=== PATIENT | female | born 1965 | race Caucasian/White ===

== ENCOUNTER 2016-08-21 11:02 | Inpatient (IN) | payer OTHER ==
[2016-08-18 16:24] LABS: BASOPHILS % (AUTO) 0.5 % (0.0-2.0); EOSINOPHILS # (AUTO) 0.2 K/uL (0.0-0.4); EOSINOPHILS % (AUTO) 2.9 % (0.0-4.0); HEMATOCRIT 41.5 % (36-48); HEMOGLOBIN 12.9 g/dL (12.0-16.0); LYMPHOCYTES # (AUTO) 1.8 K/uL (1.0-5.5); LYMPHOCYTES % (AUTO) 29.7 % (20.5-51.5); MEAN CORPUSCULAR HEMOGLOBIN 24 pg (27-31); MEAN CORPUSCULAR HGB CONC 31 % (32-36); MEAN CORPUSCULAR VOLUME 76 fL (79.0-98.0); MONOCYTES # (AUTO) 0.6 K/uL (0.0-1.0); MONOCYTES % (AUTO) 10.6 % (1.7-9.3); NEUTROPHILS # (AUTO) 3.4 K/uL (1.8-7.7); NEUTROPHILS % (AUTO) 56.3 % (40.0-70.0); PLATELET COUNT (AUTO) 316 K/uL (130-430); RED BLOOD CELL COUNT(AUTO) 5.43 MIL/uL (4.2-6.2); RED CELL DISTRIBUTION WIDTH 16.2 % (9.0-15.0)
[2016-08-18 16:52] LABS: INR 1.1 (0.8-1.2); PROTHROMBIN TIME 12.1 SECS (9.5-12.5)
[2016-08-18 16:58] LABS: ALBUMIN 4.2 g/dL (3.4-4.8); CALCIUM 10.2 mg/dL (8.4-11.0); CREATININE 0.84 mg/dL (0.55-1.30); POTASSIUM 3.7 mmol/L (3.5-5.1); TOTAL BILIRUBIN 0.3 mg/dL (0.0-1.0)
[~2016-08-21] VITALS: Ht 167.6 cm; Wt 65.8 kg
[~2016-08-21 11:02] MED LIST: ABAT125S SQ; ALPR0.2583 PO; AMLO5TAB92 PO; PLA200 PO; SOLI40 IVP; TEMA30CA5 PO
[2016-08-21] MEDS ORDERED: POLYMYXIN 500,000/BACIT.10,000 UNITS in NS IRR 1 L IR ONE (12:50)
[2016-08-21] MEDS ORDERED: LR 1,000 ML IV SCH (13:22)
[2016-08-21] MEDS ORDERED: KETOROLAC TROMETHAMINE 30 MG VIAL IVP PRN ×2 (13:30→15:45)
[2016-08-21] MEDS ORDERED: ONDANSETRON HCL 4 MG/2 ML VIAL IVP PRN (13:30)
[2016-08-21] MEDS ORDERED: MEPERIDINE HCL/PF 25 MG/ML DISP.SYRIN IVP PRN ×2 (13:30)
[2016-08-21] MEDS ORDERED: ACETAMINOPHEN 325 MG TABLET PO PRN (15:45)
[2016-08-21] MEDS ORDERED: DIPHENHYDRAMINE INJ 50 MG/ML VIAL IVP ONE (15:45)
[2016-08-21] MEDS ORDERED: DIPHENHYDRAMINE INJ 50 MG/ML VIAL ONE ×2 (15:50→18:24)
[2016-08-21] MEDS ORDERED: KETOROLAC TROMETHAMINE 30 MG VIAL ONE (15:50)
[2016-08-21] MEDS ORDERED: HYDROmorphone 1 MG INJ. 1 MG/ML AMPUL ONE (15:50)
[2016-08-21] MEDS: ONDANSETRON HCL 4 MG/2 ML VIAL IVP PRN (18:41)
[2016-08-21] MEDS: D5/0.45 NS 1,000 ML IV SCH (18:51)
[2016-08-21 19:47] VITALS: BP_SYST 131
[2016-08-21] MEDS ORDERED: VANCOMYCIN HCL 1 GM/NS PREMIX 250 ML IV ONE (20:00)
[2016-08-21] MEDS: DIPHENHYDRAMINE INJ 50 MG/ML VIAL IVP PRN (21:22)
[2016-08-21] MEDS: HYDROmorphone 1 MG INJ. 1 MG/ML AMPUL IVP PRN (21:22)
[2016-08-21] MEDS: CEFAZOLIN 1 GM IVPB PREMIX 50 ML IV SCH (21:36)
[2016-08-21 23:49] VITALS: BP_SYST 112
[2016-08-22] MEDS: DIPHENHYDRAMINE INJ 50 MG/ML VIAL IVP PRN ×7 (00:51→23:05)
[2016-08-22] MEDS: HYDROmorphone 1 MG INJ. 1 MG/ML AMPUL IVP PRN ×7 (00:51→23:06)
[2016-08-22 04:03] VITALS: BP_SYST 124
[2016-08-22] MEDS: D5/0.45 NS 1,000 ML IV SCH ×2 (05:54→11:33)
[2016-08-22] MEDS: CEFAZOLIN 1 GM IVPB PREMIX 50 ML IV SCH (05:54)
[2016-08-22 08:00] VITALS: BP_SYST 135
[2016-08-22 08:09] LABS: BASOPHILS # (AUTO) 0.1 K/uL (0.0-0.2); BASOPHILS % (AUTO) 0.5 % (0.0-2.0); EOSINOPHILS % (AUTO) 0.1 % (0.0-4.0); HEMOGLOBIN 11.3 g/dL (12.0-16.0); LYMPHOCYTES # (AUTO) 1.5 K/uL (1.0-5.5); LYMPHOCYTES % (AUTO) 10.6 % (20.5-51.5); MEAN CORPUSCULAR HEMOGLOBIN 25 pg (27-31); MEAN CORPUSCULAR HGB CONC 33 % (32-36); MEAN CORPUSCULAR VOLUME 75 fL (79.0-98.0); MONOCYTES # (AUTO) 0.8 K/uL (0.0-1.0); MONOCYTES % (AUTO) 5.5 % (1.7-9.3); NEUTROPHILS # (AUTO) 12.2 K/uL (1.8-7.7); NEUTROPHILS % (AUTO) 83.3 % (40.0-70.0); PLATELET COUNT (AUTO) 282 K/uL (130-430); RED BLOOD CELL COUNT(AUTO) 4.51 MIL/uL (4.2-6.2); RED CELL DISTRIBUTION WIDTH 16.5 % (9.0-15.0); WHITE BLOOD COUNT (AUTO) 14.6 K/uL (4.8-10.8)
[2016-08-22 08:25] LABS: POTASSIUM 3.9 mmol/L (3.5-5.1)
[2016-08-22 08:26] LABS: ALBUMIN 3.5 g/dL (3.4-4.8); CALCIUM 8.9 mg/dL (8.4-11.0); CREATININE 0.78 mg/dL (0.55-1.30); TOTAL BILIRUBIN 0.2 mg/dL (0.0-1.0); TOTAL PROTEIN, SERUM 6.7 g/dL (6.4-8.3)
[2016-08-22 12:39] VITALS: BP_SYST 137
[2016-08-22] MEDS ORDERED: TRIAMCINOLONE ACETONIDE 40 MG/ML ONE (14:00)
[2016-08-22] MEDS ORDERED: BUPIVACAINE LIPOSOME/PF 266 MG/20 ML VIAL INFIL ONE (14:00)
[2016-08-22] MEDS ORDERED: LR 1,000 ML IV.SOLN IV ONE (14:00)
[2016-08-22] MEDS ORDERED: MIDAZOLAM HCL 5 MG/5 ML VIAL ONE (14:00)
[2016-08-22] MEDS ORDERED: GLYCOPYRROLATE 0.2 MG/ML VIAL ONE (14:00)
[2016-08-22] MEDS ORDERED: NS IRRIG SOLN 1000 ML IR ONE (14:00)
[2016-08-22] MEDS ORDERED: fentaNYL CITRATE 250 MCG/5 ML AMP ONE (14:00)
[2016-08-22] MEDS ORDERED: ONDANSETRON HCL 4 MG/2 ML VIAL ONE (14:00)
[2016-08-22] MEDS ORDERED: SEVOFLURANE 15 MIN GAS INH ONE (14:00)
[2016-08-22] MEDS ORDERED: PROPOFOL 200MG/ 20ML VIAL (DIPRIVAN) IV ONE (14:00)
[2016-08-22] MEDS ORDERED: CEFAZOLIN 2 GM IVPB PREMIX 50 ML IV ONE (14:00)
[2016-08-22] MEDS ORDERED: ROCURONIUM BROMIDE 10 MG/ML (ZEMURON) ONE (14:00)
[2016-08-22] MEDS ORDERED: DOCUSATE SODIUM 250 MG CAPSULE PO ONE (15:15)
[2016-08-22] MEDS ORDERED: MINERAL OIL 30 ML UDC PO ONE (15:15)
[2016-08-22] MEDS ORDERED: HYDROmorphone 1 MG INJ. 1 MG/ML AMPUL IVP ONE (15:15)
[2016-08-22] MEDS ORDERED: HYDROmorphone 2 MG TAB PO PRN (15:15)
[2016-08-22] MEDS ORDERED: MILK OF MAGNESIA 30 ML UDC PO PRN (15:15)
[2016-08-22 16:47] VITALS: BP_SYST 137
[2016-08-22] MEDS: MINERAL OIL 30 ML UDC PO SCH (20:22)
[2016-08-22] MEDS: DOCUSATE SODIUM 250 MG CAPSULE PO SCH (20:22)
[2016-08-22] MEDS: TEMAZEPAM 15 MG CAPSULE PO SCH (23:28)
[2016-08-23] VITALS (7 sets, daily range): BP systolic 132–158
[2016-08-23] MEDS: DIPHENHYDRAMINE INJ 50 MG/ML VIAL IVP PRN ×6 (02:16→20:07)
[2016-08-23] MEDS: HYDROmorphone 1 MG INJ. 1 MG/ML AMPUL IVP PRN ×6 (02:21→20:08)
[2016-08-23 07:26] LABS: BASOPHILS # (AUTO) 0.1 K/uL (0.0-0.2); BASOPHILS % (AUTO) 0.5 % (0.0-2.0); CREATININE 0.67 mg/dL (0.55-1.30); EOSINOPHILS # (AUTO) 0.3 K/uL (0.0-0.4); EOSINOPHILS % (AUTO) 2.5 % (0.0-4.0); HEMOGLOBIN 11.6 g/dL (12.0-16.0); LYMPHOCYTES # (AUTO) 1.8 K/uL (1.0-5.5); LYMPHOCYTES % (AUTO) 17.7 % (20.5-51.5); MEAN CORPUSCULAR HEMOGLOBIN 26 pg (27-31); MEAN CORPUSCULAR HGB CONC 34 % (32-36); MEAN CORPUSCULAR VOLUME 75 fL (79.0-98.0); MONOCYTES % (AUTO) 9.4 % (1.7-9.3); NEUTROPHILS # (AUTO) 6.9 K/uL (1.8-7.7); NEUTROPHILS % (AUTO) 69.9 % (40.0-70.0); PLATELET COUNT (AUTO) 250 K/uL (130-430); POTASSIUM 3.9 mmol/L (3.5-5.1); RED BLOOD CELL COUNT(AUTO) 4.53 MIL/uL (4.2-6.2); RED CELL DISTRIBUTION WIDTH 16.3 % (9.0-15.0); WHITE BLOOD COUNT (AUTO) 10.1 K/uL (4.8-10.8)
[2016-08-23] MEDS: DOCUSATE SODIUM 250 MG CAPSULE PO SCH ×2 (08:21→20:07)
[2016-08-23] MEDS: MINERAL OIL 30 ML UDC PO SCH ×2 (08:21→20:07)
[2016-08-23] MEDS ORDERED: HYDR-4100 PO (14:35)
[2016-08-23] MEDS ORDERED: DOCU250C PO (14:36)
[2016-08-23 23:11] LABS: BASOPHILS # (AUTO) 0.1 K/uL (0.0-0.2); BASOPHILS % (AUTO) 0.6 % (0.0-2.0); EOSINOPHILS # (AUTO) 0.3 K/uL (0.0-0.4); EOSINOPHILS % (AUTO) 2.6 % (0.0-4.0); MONOCYTES # (AUTO) 0.9 K/uL (0.0-1.0)
[2016-08-23 23:19] LABS: HEMATOCRIT 35.5 % (36-48); HEMOGLOBIN 11.8 g/dL (12.0-16.0); LYMPHOCYTES # (AUTO) 1.5 K/uL (1.0-5.5); LYMPHOCYTES % (AUTO) 14.8 % (20.5-51.5); MEAN CORPUSCULAR HEMOGLOBIN 25 pg (27-31); MEAN CORPUSCULAR HGB CONC 33 % (32-36); MEAN CORPUSCULAR VOLUME 76 fL (79.0-98.0); NEUTROPHILS # (AUTO) 7.4 K/uL (1.8-7.7); PLATELET COUNT (AUTO) 256 K/uL (130-430); RED BLOOD CELL COUNT(AUTO) 4.67 MIL/uL (4.2-6.2); RED CELL DISTRIBUTION WIDTH 15.9 % (9.0-15.0); WHITE BLOOD COUNT (AUTO) 10.2 K/uL (4.8-10.8)
[2016-08-24] VITALS (7 sets, daily range): BP systolic 129–149
[2016-08-24 00:01] LABS: CALCIUM 9.1 mg/dL (8.4-11.0); CREATININE 0.72 mg/dL (0.55-1.30); POTASSIUM 4.3 mmol/L (3.5-5.1)
[2016-08-24] MEDS: TEMAZEPAM 15 MG CAPSULE PO SCH (00:19)
[2016-08-24] MEDS: DIPHENHYDRAMINE INJ 50 MG/ML VIAL IVP PRN ×7 (00:20→18:59)
[2016-08-24] MEDS: HYDROmorphone 1 MG INJ. 1 MG/ML AMPUL IVP PRN ×7 (00:21→19:00)
[2016-08-24] MEDS: MINERAL OIL 30 ML UDC PO SCH ×2 (09:40→20:28)
[2016-08-24] MEDS: DOCUSATE SODIUM 250 MG CAPSULE PO SCH ×2 (09:40→20:28)
[2016-08-24 11:48] LABS: BASOPHILS # (AUTO) 0.1 K/uL (0.0-0.2); BASOPHILS % (AUTO) 0.6 % (0.0-2.0); EOSINOPHILS # (AUTO) 0.4 K/uL (0.0-0.4); HEMATOCRIT 37.3 % (36-48); HEMOGLOBIN 12.4 g/dL (12.0-16.0); LYMPHOCYTES # (AUTO) 1.8 K/uL (1.0-5.5); LYMPHOCYTES % (AUTO) 20.4 % (20.5-51.5); MEAN CORPUSCULAR HEMOGLOBIN 25 pg (27-31); MEAN CORPUSCULAR HGB CONC 33 % (32-36); MEAN CORPUSCULAR VOLUME 77 fL (79.0-98.0); MONOCYTES # (AUTO) 0.9 K/uL (0.0-1.0); MONOCYTES % (AUTO) 10.1 % (1.7-9.3); NEUTROPHILS # (AUTO) 5.5 K/uL (1.8-7.7); NEUTROPHILS % (AUTO) 63.9 % (40.0-70.0); PLATELET COUNT (AUTO) 272 K/uL (130-430); RED BLOOD CELL COUNT(AUTO) 4.87 MIL/uL (4.2-6.2); RED CELL DISTRIBUTION WIDTH 16.3 % (9.0-15.0); WHITE BLOOD COUNT (AUTO) 8.7 K/uL (4.8-10.8)
[2016-08-24] MEDS: ONDANSETRON HCL 4 MG/2 ML VIAL IVP PRN (20:28)
== END 2016-08-24 21:46 | disposition home or self-care (01) | DRG 355 ==
LOC: SDS 11:02 → UNDOADMOB 17:08 → SMU 17:08 → SDS 08-22 14:43 → SMU 08-22 14:48
PROVIDERS: ADMIT Internal Medicine; ATTEND Internal Medicine
PROC: 0WJF4ZZ Inspection of Abdominal Wall, Percutaneous Endoscopic Approach (ICD-10-PCS; 2016-08-21)
PROC: 0HR7X74 Replacement of Abdomen Skin with Autologous Tissue Substitute, Partial Thickness, External Approach (ICD-10-PCS; 2016-08-21)
PROC: 3E0T3CZ (ICD-10-PCS; 2016-08-21)
PROC: 0WQF0ZZ Repair Abdominal Wall, Open Approach (ICD-10-PCS; 2016-08-21)
PROC: 0WUF0JZ Supplement Abdominal Wall with Synthetic Substitute, Open Approach (ICD-10-PCS; principal; 2016-08-21 13:00)
DX: K43.2 Incisional hernia without obstruction or gangrene (principal); D63.8 Anemia in other chronic diseases classified elsewhere; G89.4 Chronic pain syndrome; M06.9 Rheumatoid arthritis, unspecified; I10 Essential (primary) hypertension; M32.9 Systemic lupus erythematosus, unspecified; M79.7 Fibromyalgia; F32.9 Major depressive disorder, single episode, unspecified; F41.9 Anxiety disorder, unspecified; Z86.73 Personal history of transient ischemic attack (TIA), and cerebral infarction without residual deficits
CPT/HCPCS: 36415; 71020-TC; 80048; 80053; 85025; 85610-TC; 85730-TC; 87040-TC; 87536; 88302; 93005; C9290; J0690; J1170; J1200; J1885; J2250; J2405; J2704; J3010; J3301; J3370; J3490; J7120

== ENCOUNTER 2016-10-14 17:22 | Inpatient (IN) | payer OTHER ==
[~2016-10-14] VITALS: Ht 167.6 cm; Wt 65.8 kg
[2016-10-14] MEDS: FAMOTIDINE PF 20 MG/2 ML VIAL IVP SCH ×2 (09:00→20:39)
[2016-10-14] MEDS: methylPREDNISolone SOD SUCC 40 MG/ML VIAL IVP SCH ×2 (09:15→20:39)
[~2016-10-14 17:22] MED LIST changes: -ALPR0.2583 PO; -AMLO5TAB92 PO; +DOCU250C PO; +HYDR-4100 PO; -PLA200 PO; -SOLI40 IVP; -TEMA30CA5 PO
[2016-10-14 17:59] VITALS: BP_SYST 151
[2016-10-14 18:00] VITALS: BP_SYST 151
[2016-10-14] MEDS ORDERED: CHOL2000 PO (18:15)
[2016-10-14] MEDS ORDERED: PLA200 PO (18:15)
[2016-10-14] MEDS ORDERED: ASPI81TA2 PO (18:15)
[2016-10-14] MEDS ORDERED: VITA400C68 PO (18:15)
[2016-10-14] MEDS ORDERED: ZOLP5TAB2 PO (18:15)
[2016-10-14] MEDS ORDERED: L.RH1CAP PO (18:15)
[2016-10-14] MEDS ORDERED: ZOLPIDEM TARTRATE 5 MG TABLET PO PRN (18:30)
[2016-10-14] MEDS ORDERED: HYDROcodone/ACETAMIN 10-325 MG TAB PO SCH (18:30)
[2016-10-14 20:00] VITALS: BP_SYST 140
[2016-10-14] MEDS: ONDANSETRON HCL 4 MG/2 ML VIAL IVP PRN (20:36)
[2016-10-14] MEDS: HYDROmorphone 1 MG INJ. 1 MG/ML AMPUL IVP PRN (20:37)
[2016-10-14] MEDS: DIPHENHYDRAMINE INJ 50 MG/ML VIAL IVP PRN (20:38)
[2016-10-14] MEDS: DOCUSATE SODIUM 250 MG CAPSULE PO SCH (20:39)
[2016-10-14] MEDS: HYDROXYCHLOROQUINE SULFATE 200 MG TABLET PO SCH (20:39)
[2016-10-14] MEDS: LR 1,000 ML IV SCH (20:49)
[2016-10-14] MEDS: LORazepam 2 MG/ML VIAL IVP PRN (22:54)
[2016-10-14 23:17] LABS: BASOPHILS % (AUTO) 0.4 % (0.0-2.0); EOSINOPHILS % (AUTO) 0.2 % (0.0-4.0); HEMATOCRIT 39.7 % (36-48); HEMOGLOBIN 13.3 g/dL (12.0-16.0); LYMPHOCYTES % (AUTO) 11.4 % (20.5-51.5); MEAN CORPUSCULAR HEMOGLOBIN 25 pg (27-31); MEAN CORPUSCULAR HGB CONC 34 % (32-36); MEAN CORPUSCULAR VOLUME 76 fL (79.0-98.0); MONOCYTES # (AUTO) 0.2 K/uL (0.0-1.0); NEUTROPHILS # (AUTO) 7.8 K/uL (1.8-7.7); PLATELET COUNT (AUTO) 311 K/uL (130-430); RED BLOOD CELL COUNT(AUTO) 5.24 MIL/uL (4.2-6.2); RED CELL DISTRIBUTION WIDTH 15.6 % (9.0-15.0)
[2016-10-14 23:25] LABS: CALCIUM 9.4 mg/dL (8.4-11.0); CREATININE 1.04 mg/dL (0.55-1.30); POTASSIUM 3.7 mmol/L (3.5-5.1)
[2016-10-14 23:30] LABS: TOTAL BILIRUBIN 0.4 mg/dL (0.0-1.0); TOTAL PROTEIN, SERUM 7.8 g/dL (6.4-8.3)
[2016-10-15] VITALS (7 sets, daily range): BP systolic 108–153
[2016-10-15] MEDS: TEMAZEPAM 15 MG CAPSULE PO PRN (00:58)
[2016-10-15] MEDS: DIPHENHYDRAMINE INJ 50 MG/ML VIAL IVP PRN ×5 (02:41→21:07)
[2016-10-15] MEDS: HYDROmorphone 1 MG INJ. 1 MG/ML AMPUL IVP PRN ×5 (02:42→21:09)
[2016-10-15] MEDS: LR 1,000 ML IV SCH ×2 (05:27→17:35)
[2016-10-15] MEDS: ONDANSETRON HCL 4 MG/2 ML VIAL IVP PRN ×4 (05:34→21:06)
[2016-10-15] MEDS: LORazepam 2 MG/ML VIAL IVP PRN ×2 (05:34→22:51)
[2016-10-15 06:53] LABS: CALCIUM 9.2 mg/dL (8.4-11.0); CREATININE 0.85 mg/dL (0.55-1.30); POTASSIUM 3.8 mmol/L (3.5-5.1)
[2016-10-15 06:57] LABS: BASOPHILS % (AUTO) 0.4 % (0.0-2.0); EOSINOPHILS % (AUTO) 0.1 % (0.0-4.0); HEMATOCRIT 37.2 % (36-48); HEMOGLOBIN 12.5 g/dL (12.0-16.0); LYMPHOCYTES % (AUTO) 15.5 % (20.5-51.5); MEAN CORPUSCULAR HEMOGLOBIN 25 pg (27-31); MEAN CORPUSCULAR HGB CONC 34 % (32-36); MEAN CORPUSCULAR VOLUME 76 fL (79.0-98.0); MONOCYTES # (AUTO) 0.2 K/uL (0.0-1.0); MONOCYTES % (AUTO) 2.7 % (1.7-9.3); NEUTROPHILS # (AUTO) 5.5 K/uL (1.8-7.7); NEUTROPHILS % (AUTO) 81.3 % (40.0-70.0); PLATELET COUNT (AUTO) 283 K/uL (130-430); RED BLOOD CELL COUNT(AUTO) 4.92 MIL/uL (4.2-6.2); RED CELL DISTRIBUTION WIDTH 15.6 % (9.0-15.0); WHITE BLOOD COUNT (AUTO) 6.7 K/uL (4.8-10.8)
[2016-10-15] MEDS: FAMOTIDINE PF 20 MG/2 ML VIAL IVP SCH ×2 (08:55→21:04)
[2016-10-15] MEDS: methylPREDNISolone SOD SUCC 40 MG/ML VIAL IVP SCH ×2 (08:55→21:05)
[2016-10-15] MEDS: LACTOBACILLUS RHAMNOSUS GG 1 CAP CAPSULE PO SCH (09:00)
[2016-10-15] MEDS: CHOLECALCIFEROL (VITAMIN D3) 2,000 UNIT TABLET PO SCH (09:00)
[2016-10-15] MEDS: DOCUSATE SODIUM 250 MG CAPSULE PO SCH ×2 (09:00→21:05)
[2016-10-15] MEDS: ASPIRIN 81 MG TAB.CHEW PO SCH (09:01)
[2016-10-15] MEDS: HYDROXYCHLOROQUINE SULFATE 200 MG TABLET PO SCH ×2 (09:01→21:05)
[2016-10-15 11:29] LABS: ERYTHROCYTE SEDIMENTATION RATE 7 MM/HR (0-20)
[2016-10-15 11:30] LABS: RETICULOCYTE COUNT 0.7 % (0.5-1.5)
[2016-10-15] MEDS ORDERED: DIATR MEGLU/DIATRIZ SOD 30 ML SOLUTION PO ONE (13:34)
[2016-10-15] MEDS ORDERED: MINERAL OIL 30 ML UDC PO ONE (16:30)
[2016-10-15 18:00] LABS: BILIRUBIN,URINE NEGATIVE (NEGATIVE); BLOOD, URINE NEGATIVE (NEGATIVE); CLARITY/URINE CLEAR (CLEAR); COLOR,URINE YELLOW (YELLOW); GLUCOSE,URINE NEGATIVE (NEGATIVE); KETONES,URINE NEGATIVE (NEGATIVE); LEUKOCYTE ESTERASE ,URINE NEGATIVE (NEGATIVE); NITRITE, URINE NEGATIVE (NEGATIVE); PROTEIN URINE NEGATIVE (NEGATIVE); UROBILINOGEN,URINE 0.2 (0.2-1.0)
[2016-10-16] MEDS: LR 1,000 ML IV SCH ×3 (00:30→23:07)
[2016-10-16] MEDS: DIPHENHYDRAMINE INJ 50 MG/ML VIAL IVP PRN ×6 (01:26→22:06)
[2016-10-16] MEDS: HYDROmorphone 1 MG INJ. 1 MG/ML AMPUL IVP PRN ×6 (01:28→22:08)
[2016-10-16 04:10] VITALS: BP_SYST 136
[2016-10-16] MEDS: ONDANSETRON HCL 4 MG/2 ML VIAL IVP PRN ×2 (05:31→09:15)
[2016-10-16] MEDS: LORazepam 2 MG/ML VIAL IVP PRN ×2 (06:54→16:20)
[2016-10-16 08:00] VITALS: BP_SYST 155
[2016-10-16] MEDS: LACTOBACILLUS RHAMNOSUS GG 1 CAP CAPSULE PO SCH (09:00)
[2016-10-16] MEDS: DOCUSATE SODIUM 250 MG CAPSULE PO SCH ×2 (09:00→22:20)
[2016-10-16] MEDS: ASPIRIN 81 MG TAB.CHEW PO SCH (09:00)
[2016-10-16] MEDS: CHOLECALCIFEROL (VITAMIN D3) 2,000 UNIT TABLET PO SCH (09:00)
[2016-10-16] MEDS: HYDROXYCHLOROQUINE SULFATE 200 MG TABLET PO SCH ×2 (09:00→22:20)
[2016-10-16] MEDS: MINERAL OIL 30 ML UDC PO SCH (09:00)
[2016-10-16] MEDS: methylPREDNISolone SOD SUCC 40 MG/ML VIAL IVP SCH ×2 (09:18→22:09)
[2016-10-16] MEDS: FAMOTIDINE PF 20 MG/2 ML VIAL IVP SCH ×2 (09:18→23:07)
[2016-10-16 12:00] VITALS: BP_SYST 144
[2016-10-16 18:32] VITALS: BP_SYST 139
[2016-10-16 20:15] VITALS: BP_SYST 134; BP_SYST 137
[2016-10-16] MEDS: TEMAZEPAM 15 MG CAPSULE PO PRN (22:20)
[2016-10-16] MEDS ORDERED: GOLYTELY / COLYTE SOLUTION 4 LITERS PO ONE (23:30)
[2016-10-16 23:44] VITALS: BP_SYST 115
[2016-10-17] MEDS: DIPHENHYDRAMINE INJ 50 MG/ML VIAL IVP PRN ×5 (02:30→20:34)
[2016-10-17] MEDS: HYDROmorphone 1 MG INJ. 1 MG/ML AMPUL IVP PRN ×5 (02:31→20:36)
[2016-10-17 04:03] VITALS: BP_SYST 128
[2016-10-17] MEDS: LORazepam 2 MG/ML VIAL IVP PRN ×2 (04:22→22:26)
[2016-10-17 08:00] VITALS: BP_SYST 118
[2016-10-17 08:31] LABS: EOSINOPHILS % (AUTO) 0.1 % (0.0-4.0); HEMOGLOBIN 12.4 g/dL (12.0-16.0); LYMPHOCYTES % (AUTO) 20.1 % (20.5-51.5); MEAN CORPUSCULAR HEMOGLOBIN 25 pg (27-31); MEAN CORPUSCULAR HGB CONC 33 % (32-36); MEAN CORPUSCULAR VOLUME 78 fL (79.0-98.0); MONOCYTES # (AUTO) 0.5 K/uL (0.0-1.0); MONOCYTES % (AUTO) 5.5 % (1.7-9.3); PLATELET COUNT (AUTO) 243 K/uL (130-430); RED CELL DISTRIBUTION WIDTH 16.1 % (9.0-15.0); WHITE BLOOD COUNT (AUTO) 9.7 K/uL (4.8-10.8)
[2016-10-17 08:33] LABS: BASOPHILS % (AUTO) 0.1 % (0.0-2.0); NEUTROPHILS # (AUTO) 7.2 K/uL (1.8-7.7); NEUTROPHILS % (AUTO) 74.2 % (40.0-70.0)
[2016-10-17 08:44] LABS: ALBUMIN 3.7 g/dL (3.4-4.8); CALCIUM 9.1 mg/dL (8.4-11.0); CREATININE 0.66 mg/dL (0.55-1.30); TOTAL BILIRUBIN 0.2 mg/dL (0.0-1.0); TOTAL PROTEIN, SERUM 7.5 g/dL (6.4-8.3)
[2016-10-17] MEDS: FAMOTIDINE PF 20 MG/2 ML VIAL IVP SCH ×2 (09:12→20:34)
[2016-10-17] MEDS: methylPREDNISolone SOD SUCC 40 MG/ML VIAL IVP SCH ×2 (09:12→20:34)
[2016-10-17] MEDS: ASPIRIN 81 MG TAB.CHEW PO SCH (09:13)
[2016-10-17] MEDS: DOCUSATE SODIUM 250 MG CAPSULE PO SCH ×2 (09:13→20:36)
[2016-10-17] MEDS: MINERAL OIL 30 ML UDC PO SCH (09:13)
[2016-10-17] MEDS: HYDROXYCHLOROQUINE SULFATE 200 MG TABLET PO SCH ×2 (09:13→20:36)
[2016-10-17] MEDS: LACTOBACILLUS RHAMNOSUS GG 1 CAP CAPSULE PO SCH (09:13)
[2016-10-17] MEDS: CHOLECALCIFEROL (VITAMIN D3) 2,000 UNIT TABLET PO SCH (09:13)
[2016-10-17 09:44] LABS: ERYTHROCYTE SEDIMENTATION RATE 5 MM/HR (0-20)
[2016-10-17] MEDS: LR 1,000 ML IV SCH ×3 (09:59→20:57)
[2016-10-17 13:04] VITALS: BP_SYST 130
[2016-10-17] MEDS ORDERED: MIDAZOLAM HCL 5 MG/5 ML VIAL ONE (13:59)
[2016-10-17] MEDS ORDERED: fentaNYL CITRATE/PF 100 MCG/2 ML AMP ONE ×2 (13:59→14:26)
[2016-10-17] MEDS ORDERED: SIMETHICONE 40 MG/0.6 ML ML ONE (13:59)
[2016-10-17] MEDS ORDERED: DIPHENHYDRAMINE INJ 50 MG/ML VIAL ONE (14:21)
[2016-10-17] MEDS: ONDANSETRON HCL 4 MG/2 ML VIAL IVP PRN (16:04)
[2016-10-17 17:04] VITALS: BP_SYST 135
[2016-10-17 19:30] VITALS: BP_SYST 140
[2016-10-18] VITALS: BP_SYST 144
[2016-10-18] MEDS: DIPHENHYDRAMINE INJ 50 MG/ML VIAL IVP PRN ×4 (00:38→13:12)
[2016-10-18] MEDS: TEMAZEPAM 15 MG CAPSULE PO PRN (00:38)
[2016-10-18] MEDS: HYDROmorphone 1 MG INJ. 1 MG/ML AMPUL IVP PRN ×4 (00:39→13:13)
[2016-10-18 04:00] VITALS: BP_SYST 132
[2016-10-18 08:00] VITALS: BP_SYST 147
[2016-10-18] MEDS: ASPIRIN 81 MG TAB.CHEW PO SCH (08:45)
[2016-10-18] MEDS: LACTOBACILLUS RHAMNOSUS GG 1 CAP CAPSULE PO SCH (08:45)
[2016-10-18] MEDS: DOCUSATE SODIUM 250 MG CAPSULE PO SCH (08:46)
[2016-10-18] MEDS: CHOLECALCIFEROL (VITAMIN D3) 2,000 UNIT TABLET PO SCH (08:46)
[2016-10-18] MEDS: HYDROXYCHLOROQUINE SULFATE 200 MG TABLET PO SCH (08:46)
[2016-10-18] MEDS: MINERAL OIL 30 ML UDC PO SCH (08:46)
[2016-10-18] MEDS: FAMOTIDINE PF 20 MG/2 ML VIAL IVP SCH (08:47)
[2016-10-18] MEDS ORDERED: POLYETHYLENE GLYCOL 3350, 17 GM/ POWD.PACK PO SCH (09:00)
[2016-10-18] MEDS: methylPREDNISolone SOD SUCC 40 MG/ML VIAL IVP SCH (09:00)
[2016-10-18 10:38] VITALS: BP_SYST 147
[2016-10-18] MEDS: LORazepam 2 MG/ML VIAL IVP PRN (11:59)
[2016-10-18] MEDS: LR 1,000 ML IV SCH (12:21)
[2016-10-18 12:25] VITALS: BP_SYST 132
== END 2016-10-18 13:50 | disposition home or self-care (01) | DRG 546 ==
LOC: SMU 17:22
PROVIDERS: ADMIT Internal Medicine; ATTEND Internal Medicine
PROC: 0DBE8ZX Excision of Large Intestine, Via Natural or Artificial Opening Endoscopic, Diagnostic (ICD-10-PCS; principal; 2016-10-17 14:30)
DX: M32.9 Systemic lupus erythematosus, unspecified (principal); F11.20 Opioid dependence, uncomplicated; E86.0 Dehydration; M06.9 Rheumatoid arthritis, unspecified; G89.4 Chronic pain syndrome; K57.30 Diverticulosis of large intestine without perforation or abscess without bleeding; K44.9 Diaphragmatic hernia without obstruction or gangrene; M79.7 Fibromyalgia; Z88.8 Allergy status to other drugs, medicaments and biological substances; Z79.899 Other long term (current) drug therapy
CPT/HCPCS: 36415; 74000-TC; 80048; 80053; 80061; 81003; 83690-TC; 85025; 85044-TC; 85651-TC; 87040-TC; 87086; 88305; J1030; J1170; J1200; J2060; J2250; J2405; J3010; J3490; J7030; J7120; Q9964

== ENCOUNTER 2016-12-13 17:41 | Emergency (ER) | payer OTHER ==
[~2016-12-13] VITALS: Ht 165.1 cm; Wt 61.7 kg
[~2016-12-13 17:41] MED LIST changes: +ASPI81TA2 PO; +CHOL2000 PO; +L.RH1CAP PO; +PLA200 PO; +VITA400C68 PO; +ZOLP5TAB2 PO
[2016-12-13 17:51] VITALS: BP_SYST 149
--- NOTE | 2016-12-13 17:51 | NUR ---
Pt placed to ER waiting room in stable condition.
--- NOTE | 2016-12-13 19:30 | NUR ---
Patient to ER bed 07 to gown for evaluation. Side rails up. Report given to CHAZ Jaramillo.
--- NOTE | 2016-12-13 19:30 | NUR ---
Patient AAO x4, sitting in bed, states she is here for a "lupus flare up". Patient has multiple complaints stating she "feels like my heart rate is fast," "I think I'm dehydrates" and " and my muscles feels tight, " and "also might have a bladder infection." Patient able to verbalize needs. States she is tired from taking care of her mothers. No acute distress noted. Will continue to monitor.
--- NOTE | 2016-12-13 19:50 | NUR ---
ER at bedside examining patient.
[2016-12-13] MEDS ORDERED: methylPREDNISolone SOD SUCC/PF 62.5 MG/ML VIAL IVP ONE (20:00)
[2016-12-13] MEDS ORDERED: PIPERACILLIN/TAZO 3.375 GM in NS 50 ML IV ONE (20:00)
[2016-12-13] MEDS ORDERED: NACL 0.9% 1,000 ML IV ONE (20:00)
[2016-12-13 20:12] LABS: BILIRUBIN,URINE NEGATIVE (NEGATIVE); BLOOD, URINE NEGATIVE (NEGATIVE); CLARITY/URINE CLEAR (CLEAR); COLOR,URINE YELLOW (YELLOW); GLUCOSE,URINE NEGATIVE (NEGATIVE); KETONES,URINE NEGATIVE (NEGATIVE); LEUKOCYTE ESTERASE ,URINE NEGATIVE (NEGATIVE); NITRITE, URINE NEGATIVE (NEGATIVE); PH,URINE 6.5 (5.0-8.0); PROTEIN URINE NEGATIVE (NEGATIVE); UROBILINOGEN,URINE 0.2 (0.2-1.0)
--- NOTE | 2016-12-13 20:25 | NUR ---
# 24 gauge angiocath placed to Left Hand. Use of asceptic technique. Opsite placed over site. Blood return noted. Flushed with 10 cc of normal saline. No evidence of infiltration noted. Patient tolerated well.
[2016-12-13] MEDS ORDERED: HYDROmorphone 1 MG INJ. 1 MG/ML AMPUL IVP ONE ×2 (20:30→22:30)
[2016-12-13] MEDS ORDERED: DIPHENHYDRAMINE INJ 50 MG/ML VIAL IVP ONE ×2 (20:30→22:45)
[2016-12-13] MEDS ORDERED: PIPERACILLIN/TAZOBACTAM 3.375 GM/VIAL (ZOSYN) IV ONE ×2 (20:38)
--- NOTE | 2016-12-13 21:00 | NUR ---
15 minutes after administration of solumedrol, benadryl, and zosyn. No adverse reactions noted. Will continue to monitor.
--- NOTE | 2016-12-13 21:02 | NUR ---
Patient reports pain 2/10 15 minutes after administration of dilaudid. No adverse reactions noted. Will continue to monitor.
[2016-12-13 21:04] LABS: ANION GAP 7 (5-15); CALCIUM 9.7 mg/dL (8.4-11.0); CHLORIDE 103 mmol/L (98-107); GLUCOSE 111 mg/dL (70-99); SODIUM SERUM 136 mmol/L (136-145); UREA NITROGEN, BLOOD 14 mg/dL (8-21)
[2016-12-13 21:09] LABS: ALANINE AMINOTRANSFERASE 35 U/L (12-78); ALBUMIN 4.3 g/dL (3.4-4.8); ASPARTATE AMINOTRANSFERASE 27 U/L (10-37); TOTAL BILIRUBIN 0.4 mg/dL (0.0-1.0)
[2016-12-13 21:10] LABS: C-REACTIVE PROTEIN QUANT < 0.2 mg/dL (0-0.5); GFR AFRICAN AMERICAN 85 mL/min (>90)
--- NOTE | 2016-12-13 21:30 | NUR ---
Patient c/o "feeling itchy" requesting benadryl, states this is a common reaction for her whenever she is on IV medications. No redness noted to skin, no presences of rash, patient denies shortness of breath. No acute distress noted. Will continue to monitor.
[2016-12-13 21:38] LABS: BASOPHILS # (AUTO) 0.1 K/uL (0.0-0.2); BASOPHILS % (AUTO) 0.7 % (0.0-2.0); EOSINOPHILS # (AUTO) 0.4 K/uL (0.0-0.4); EOSINOPHILS % (AUTO) 5.3 % (0.0-4.0); HEMATOCRIT 40.6 % (36-48); HEMOGLOBIN 13.7 g/dL (12.0-16.0); LYMPHOCYTES # (AUTO) 2.1 K/uL (1.0-5.5); LYMPHOCYTES % (AUTO) 27.1 % (20.5-51.5); MEAN CORPUSCULAR HEMOGLOBIN 27 pg (27-31); MEAN CORPUSCULAR HGB CONC 34 % (32-36); MEAN CORPUSCULAR VOLUME 78 fL (79.0-98.0); MONOCYTES # (AUTO) 0.7 K/uL (0.0-1.0); MONOCYTES % (AUTO) 9.2 % (1.7-9.3); NEUTROPHILS # (AUTO) 4.4 K/uL (1.8-7.7); NEUTROPHILS % (AUTO) 57.7 % (40.0-70.0); PLATELET COUNT (AUTO) 266 K/uL (130-430); RED BLOOD CELL COUNT(AUTO) 5.18 MIL/uL (4.2-6.2); RED CELL DISTRIBUTION WIDTH 15.4 % (9.0-15.0); WHITE BLOOD COUNT (AUTO) 7.7 K/uL (4.8-10.8)
[2016-12-13 21:44] LABS: INR 1.2 (0.8-1.2); PROTHROMBIN TIME 12.6 SECS (9.5-12.5)
[2016-12-13] MEDS ORDERED: POTASSIUM CHLORIDE 20 MEQ TAB.PRT.SR PO ONE (21:45)
[2016-12-13 22:16] LABS: ERYTHROCYTE SEDIMENTATION RATE 6 MM/HR (0-20)
--- NOTE | 2016-12-13 22:30 | NUR ---
Patient resting quietly. No acute distress noted. Vital signs within normal range.
[2016-12-13] MEDS ORDERED: ONDANSETRON HCL 4 MG/2 ML VIAL IVP ONE (22:45)
--- NOTE | 2016-12-13 23:03 | NUR ---
15 minutes after administration of Dilaudid, zofran, and benadryl. No adverse reactions noted. Will continue to monitor.
--- NOTE | 2016-12-13 23:05 | NUR ---
Patient at bedside. Will be driving patient home when discharged.
[2016-12-13 23:45] VITALS: BP_SYST 144
--- NOTE | 2016-12-13 23:45 | NUR ---
Patient given written and verbal discharge instructions and verbalizes understanding. ER MD discussed with patient the results and treatment provided. Patient in stable condition. ID arm band removed. IV catheter removed intact and dressing applied, no active bleeding. Rx of Colace and norco given. Patient educated on pain management and to follow up with PMD. Pain Scale 2/10, tolerable by patient . Opportunity for questions provided and answered.
== END 2016-12-13 23:45 | disposition home or self-care (01) ==
LOC: SED 17:41
DX: E87.6 Hypokalemia (principal); G89.4 Chronic pain syndrome; K59.00 Constipation, unspecified; M06.9 Rheumatoid arthritis, unspecified; M32.9 Systemic lupus erythematosus, unspecified; Z86.73 Personal history of transient ischemic attack (TIA), and cerebral infarction without residual deficits; Z90.49 Acquired absence of other specified parts of digestive tract
CPT/HCPCS: 36415; 74176; 80053; 81003; 85025; 85610; 85651; 85730; 86140; 87040; 96365; 96375; 96376; 99285; J1170; J1200; J2405; J2543; J2930; J7030

== ENCOUNTER 2017-02-09 09:35 | Outpatient (CLI) | payer OTHER | END 2017-02-09 19:16 | disposition home or self-care (01) | LOC: SMI 09:35 | PROVIDERS: ATTEND Internal Medicine | DX: M32.10 Systemic lupus erythematosus, organ or system involvement unspecified (principal) | CPT/HCPCS: 70551 ==

== ENCOUNTER 2017-08-10 16:30 | Outpatient (CLI) | payer OTHER ==
[2017-08-10 17:24] LABS: BILIRUBIN,URINE NEGATIVE (NEGATIVE); BLOOD, URINE NEGATIVE (NEGATIVE); CLARITY/URINE CLEAR (CLEAR); COLOR,URINE YELLOW (YELLOW); GLUCOSE,URINE NEGATIVE (NEGATIVE); KETONES,URINE NEGATIVE (NEGATIVE); LEUKOCYTE ESTERASE ,URINE NEGATIVE (NEGATIVE); NITRITE, URINE NEGATIVE (NEGATIVE); PH,URINE 6.5 (5.0-8.0); PROTEIN URINE NEGATIVE (NEGATIVE); UROBILINOGEN,URINE 0.2 (0.2-1.0)
[2017-08-10 17:43] LABS: BASOPHILS # (AUTO) 0.1 K/uL (0.0-0.2); BASOPHILS % (AUTO) 1.3 % (0.0-2.0); EOSINOPHILS # (AUTO) 0.1 K/uL (0.0-0.4); EOSINOPHILS % (AUTO) 1.6 % (0.0-4.0); HEMATOCRIT 44.7 % (36-48); HEMOGLOBIN 15.2 g/dL (12.0-16.0); LYMPHOCYTES # (AUTO) 1.9 K/uL (1.0-5.5); LYMPHOCYTES % (AUTO) 21.1 % (20.5-51.5); MEAN CORPUSCULAR HEMOGLOBIN 28 pg (27-31); MEAN CORPUSCULAR HGB CONC 34 % (32-36); MEAN CORPUSCULAR VOLUME 81 fL (79.0-98.0); MONOCYTES # (AUTO) 0.7 K/uL (0.0-1.0); MONOCYTES % (AUTO) 7.9 % (1.7-9.3); NEUTROPHILS # (AUTO) 6.4 K/uL (1.8-7.7); NEUTROPHILS % (AUTO) 68.1 % (40.0-70.0); PLATELET COUNT (AUTO) 231 K/uL (130-430); RED BLOOD CELL COUNT(AUTO) 5.53 MIL/uL (4.2-6.2); RED CELL DISTRIBUTION WIDTH 13.6 % (9.0-15.0); WHITE BLOOD COUNT (AUTO) 9.2 K/uL (4.8-10.8)
[2017-08-10 17:54] LABS: ALBUMIN 4.3 g/dL (3.4-4.8); CALCIUM 10.6 mg/dL (8.4-11.0); CREATININE 0.62 mg/dL (0.55-1.30); POTASSIUM 3.6 mmol/L (3.5-5.1); TOTAL BILIRUBIN 0.5 mg/dL (0.0-1.0)
[2017-08-10 18:40] LABS: ERYTHROCYTE SEDIMENTATION RATE 2 MM/HR (0-20)
== END 2017-08-10 20:45 | disposition home or self-care (01) ==
LOC: SLB 16:30
PROVIDERS: ATTEND Internal Medicine
DX: N23 Unspecified renal colic (principal); I10 Essential (primary) hypertension; M06.9 Rheumatoid arthritis, unspecified; Z79.899 Other long term (current) drug therapy
CPT/HCPCS: 36415; 80053; 81003; 85025; 85651-TC; 87040-TC; 87086

== ENCOUNTER 2018-06-21 09:07 | Outpatient (CLI) | payer OTHER ==
[~2018-06-21 09:07] MED LIST changes: +ASPI-1155 PO; -ASPI81TA2 PO; -DOCU250C PO; +DOCU250C14 PO; +HYDR200T80 PO; -PLA200 PO
== END 2018-06-21 21:21 | disposition home or self-care (01) ==
LOC: SMI 09:07
PROVIDERS: ATTEND Internal Medicine
DX: G45.9 Transient cerebral ischemic attack, unspecified (principal); I63.9 Cerebral infarction, unspecified
CPT/HCPCS: 70551; 93880

== ENCOUNTER 2018-07-31 22:38 | Emergency (ER) | payer OTHER ==
[~2018-07-31] VITALS: Ht 162.6 cm; Wt 72.6 kg
[2018-07-31 22:40] VITALS: BP_SYST 154
[2018-07-31] MEDS ORDERED: methylPREDNISolone SOD SUCC/PF 62.5 MG/ML VIAL IVP ONE (23:15)
[2018-07-31] MEDS ORDERED: HYDROmorphone 1 MG INJ. 1 MG/ML AMPUL IVP ONE (23:15)
[2018-07-31] MEDS ORDERED: KETOROLAC TROMETHAMINE 30 MG VIAL IVP ONE (23:15)
[2018-07-31] MEDS ORDERED: HYDROmorphone 1 MG INJ. 1 MG/ML AMPUL ONE (23:39)
[2018-07-31] MEDS ORDERED: ONDANSETRON HCL 4 MG/2 ML VIAL ONE (23:59)
[2018-08-01] MEDS ORDERED: fentaNYL CITRATE/PF 100 MCG/2 ML AMP IVP ONE ×2 (00:15→01:00)
[2018-08-01] MEDS ORDERED: NACL 0.9% 500 ML IV ONE (00:15)
[2018-08-01] MEDS ORDERED: PANTOPRAZOLE SODIUM 40 MG/VIAL (PROTONIX) IVP ONE (02:00)
[2018-08-01 02:30] VITALS: BP_SYST 140
[2018-08-01] MEDS ORDERED: LORazepam 2 MG/ML VIAL (FOR ER USE) IVP ONE (02:30)
== END 2018-08-01 02:30 | disposition home or self-care (01) ==
LOC: SED 22:38
DX: L93.0 Discoid lupus erythematosus (principal)
CPT/HCPCS: 96374; 96375; 96376; 99283; C9113; J1170; J1885; J2060; J2405; J2930; J3010; J7030

== ENCOUNTER 2018-08-24 16:29 | Outpatient (CLI) | payer OTHER ==
[2018-08-24 17:00] LABS: BASOPHILS # (AUTO) 0.1 K/uL (0.0-0.2); BASOPHILS % (AUTO) 0.8 % (0.0-2.0); EOSINOPHILS # (AUTO) 0.2 K/uL (0.0-0.4); EOSINOPHILS % (AUTO) 3.2 % (0.0-4.0); HEMATOCRIT 39.4 % (36-48); HEMOGLOBIN 13.6 g/dL (12.0-16.0); LYMPHOCYTES # (AUTO) 1.4 K/uL (1.0-5.5); LYMPHOCYTES % (AUTO) 21.7 % (20.5-51.5); MEAN CORPUSCULAR HEMOGLOBIN 27 pg (27-31); MEAN CORPUSCULAR HGB CONC 35 % (32-36); MEAN CORPUSCULAR VOLUME 78 fL (79.0-98.0); MONOCYTES # (AUTO) 0.6 K/uL (0.0-1.0); NEUTROPHILS # (AUTO) 4.4 K/uL (1.8-7.7); NEUTROPHILS % (AUTO) 65.3 % (40.0-70.0); PLATELET COUNT (AUTO) 304 K/uL (130-430); RED BLOOD CELL COUNT(AUTO) 5.05 MIL/uL (4.2-6.2); RED CELL DISTRIBUTION WIDTH 15.5 % (9.0-15.0); WHITE BLOOD COUNT (AUTO) 6.7 K/uL (4.8-10.8)
[2018-08-24 17:05] LABS: CALCIUM 10.2 mg/dL (8.4-11.0); CREATININE 0.65 mg/dL (0.55-1.30); POTASSIUM 3.9 mmol/L (3.5-5.1); URIC ACID 3.6 mg/dL (2.4-7.0)
[2018-08-24 20:59] LABS: ERYTHROCYTE SEDIMENTATION RATE 5 MM/HR (0-20)
== END 2018-08-24 21:02 | disposition home or self-care (01) ==
LOC: SLB 16:29
PROVIDERS: ATTEND Internal Medicine
DX: D89.9 Disorder involving the immune mechanism, unspecified (principal); M05.9 Rheumatoid arthritis with rheumatoid factor, unspecified; M32.9 Systemic lupus erythematosus, unspecified
CPT/HCPCS: 36415; 80048; 84550-TC; 85025; 85651-TC

== ENCOUNTER 2018-08-27 09:55 | Outpatient (CLI) | payer OTHER | END 2018-08-27 20:14 | disposition home or self-care (01) | LOC: SMI 09:55 | PROVIDERS: ATTEND Internal Medicine | DX: M25.422 Effusion, left elbow (principal); M19.022 Primary osteoarthritis, left elbow | CPT/HCPCS: 73221 ==

== ENCOUNTER 2019-04-25 16:32 | Emergency (ER) | payer OTHER ==
[~2019-04-25] VITALS: Ht 157.5 cm; Wt 79.4 kg
[2019-04-25 16:49] VITALS: BP_SYST 154
--- NOTE | 2019-04-25 17:05 | NUR ---
Patient to ER bed 5 to gown for evaluation. Side rails up. Report given to Faviola WARE.
--- NOTE | 2019-04-25 17:10 | NUR ---
PT arrives from home w/ c/o body aches. Pt has hx of RA and has not been able to see her rheumotologist. Will continue to monitor
--- NOTE | 2019-04-25 17:14 | NUR ---
ER at bedside examining patient.
[2019-04-25] MEDS ORDERED: NACL 0.9% 1,000 ML IV ONE (17:45)
[2019-04-25] MEDS ORDERED: HYDROmorphone 1 MG INJ. 1 MG/ML AMPUL IVP ONE ×2 (17:45→19:30)
[2019-04-25] MEDS ORDERED: ONDANSETRON HCL 4 MG/2 ML VIAL IVP ONE (17:45)
[2019-04-25] MEDS ORDERED: methylPREDNISolone SOD SUCC/PF 62.5 MG/ML VIAL IVP ONE (17:45)
--- NOTE | 2019-04-25 18:05 | NUR ---
# 22 gauge angiocath placed to LAC Use of asceptic technique. Opsite placed over site. Blood return noted. Blood for lab drawn from site. Flushed with 10 cc of normal saline. No evidence of infiltration noted. Patient tolerated well.
--- NOTE | 2019-04-25 18:10 | NUR ---
Medicated the pt w/ Dilauid 1mg, Zofran 4mg, and NS 1l per MD order. Will reassess.
[2019-04-25] MEDS ORDERED: HYDROmorphone 1 MG INJ. 1 MG/ML AMPUL ONE ×2 (18:16→19:47)
[2019-04-25 18:19] LABS: BASOPHILS # (AUTO) 0.1 K/uL (0.0-0.2); EOSINOPHILS # (AUTO) 0.2 K/uL (0.0-0.4); EOSINOPHILS % (AUTO) 2.1 % (0.0-4.0); HEMATOCRIT 39.3 % (36-48); HEMOGLOBIN 13.1 g/dL (12.0-16.0); LYMPHOCYTES # (AUTO) 1.5 K/uL (1.0-5.5); LYMPHOCYTES % (AUTO) 18.1 % (20.5-51.5); MEAN CORPUSCULAR HEMOGLOBIN 26 pg (27-31); MEAN CORPUSCULAR HGB CONC 33 % (32-36); MEAN CORPUSCULAR VOLUME 77 fL (79.0-98.0); MONOCYTES # (AUTO) 0.9 K/uL (0.0-1.0); MONOCYTES % (AUTO) 10.9 % (1.7-9.3); NEUTROPHILS # (AUTO) 5.8 K/uL (1.8-7.7); NEUTROPHILS % (AUTO) 67.9 % (40.0-70.0); PLATELET COUNT (AUTO) 301 K/uL (130-430); WHITE BLOOD COUNT (AUTO) 8.5 K/uL (4.8-10.8)
[2019-04-25 18:23] LABS: CALCIUM 9.4 mg/dL (8.4-11.0); CREATININE 0.79 mg/dL (0.55-1.30); POTASSIUM 3.9 mmol/L (3.5-5.1)
[2019-04-25] MEDS ORDERED: DIPHENHYDRAMINE INJ 50 MG/ML VIAL IVP ONE ×2 (18:30→20:15)
--- NOTE | 2019-04-25 18:30 | NUR ---
Medicated the pt w/ Benadryl per MD order. Will reassess.
[2019-04-25 18:31] LABS: ALBUMIN 4.2 g/dL (3.4-4.8); TOTAL BILIRUBIN 0.3 mg/dL (0.0-1.0)
--- NOTE | 2019-04-25 18:50 | NUR ---
Dr. Childress and Dr. Osborn are both speaking w/ the pt at [facility]
[2019-04-25] MEDS ORDERED: KETOROLAC TROMETHAMINE 60 MG/2 ML VIAL IM ONE (19:15)
--- NOTE | 2019-04-25 19:20 | NUR ---
Report given to Sarita WARE. pt is in stable condition.
--- NOTE | 2019-04-25 19:50 | NUR ---
Pt medicated per MD orders. Pt tolerated well. Will continue to monitor.
--- NOTE | 2019-04-25 20:09 | NUR ---
MD Song at bedside speaking to pt.
--- NOTE | 2019-04-25 21:00 | NUR ---
Pt moved to [facility] to finish IV fluids. Will continue to monitor.
[2019-04-25 21:26] VITALS: BP_SYST 146
--- NOTE | 2019-04-25 21:26 | NUR ---
Patient given written and verbal discharge instructions and verbalizes understanding. ER MD Padron discussed with patient the results and treatment provided. Patient in stable condition. ID arm band removed. IV catheter removed intact and dressing applied, no active bleeding. No Rx given. Patient educated on pain management and to follow up with PMD. Pain Scale 1/10. Opportunity for questions provided and answered. Medication side effect fact sheet provided.
== END 2019-04-25 21:26 | disposition home or self-care (01) ==
LOC: SED 16:32
DX: L93.0 Discoid lupus erythematosus (principal); Z88.5 Allergy status to narcotic agent; Z88.8 Allergy status to other drugs, medicaments and biological substances; Z79.899 Other long term (current) drug therapy
CPT/HCPCS: 36415; 80053; 85025; 96372; 96374; 96375; 96376; 99283; J1170; J1200; J1885; J2405; J2930; J7030

== ENCOUNTER 2019-12-02 22:56 | Emergency (ER) | payer OTHER ==
[~2019-12-02] VITALS: Ht 167.6 cm; Wt 77.1 kg
[2019-12-02 23:05] VITALS: BP_SYST 188
--- NOTE | 2019-12-02 23:10 | NUR ---
Patient to ER bed 2 to gown for evaluation. Side rails up. Report given to LUIZ.
--- NOTE | 2019-12-02 23:15 | NUR ---
ER Dr. COLEY at bedside examining patient.
--- NOTE | 2019-12-02 23:20 | NUR ---
PT AAO AND AMBULATORY C/O RIGHT LEG PAIN AND DISCOLORATION FOR PAST 5 DAYS. PT REPORTS PAIN 10/10 ON PAIN SCALE AND WAS REFERRED BY DR. RIVERA TO COME HERE TO R/O DVT.
[2019-12-02] MEDS ORDERED: KETOROLAC TROMETHAMINE 60 MG/2 ML VIAL IM ONE (23:30)
--- NOTE | 2019-12-03 00:11 | NUR ---
PT TO [facility]/S FOR RADIOLOGY.
[2019-12-03 00:50] VITALS: BP_SYST 168
--- NOTE | 2019-12-03 00:50 | NUR ---
Patient given written and verbal discharge instructions and verbalizes understanding. ER MD discussed with patient the results and treatment provided. Patient in stable condition. ID arm band removed. Patient educated on pain management and to follow up with PMD. Pain Scale 0/10 Opportunity for questions provided and answered.
== END 2019-12-02 23:10 | disposition home or self-care (01) ==
LOC: SED 22:56
DX: M06.9 Rheumatoid arthritis, unspecified (principal); N28.9 Disorder of kidney and ureter, unspecified; Z86.79 Personal history of other diseases of the circulatory system; Z79.899 Other long term (current) drug therapy; Z79.82 Long term (current) use of aspirin; Z88.8 Allergy status to other drugs, medicaments and biological substances; Z88.6 Allergy status to analgesic agent
CPT/HCPCS: 93970; 96372; 99284; J1885

== ENCOUNTER 2022-04-07 12:32 | Outpatient (CLI) | payer OTHER ==
[~2022-04-07 12:32] MED LIST changes: +HYDR-3927 PO; -HYDR-4100 PO; -VITA400C68 PO; +[UNRECOGNIZED DRUG - CODE] PO
[2022-04-07 13:47] LABS: BASOPHILS % (AUTO) 0.3 % (0.0-2.0); EOSINOPHILS % (AUTO) 0.2 % (0.0-4.0); HEMATOCRIT 37.3 % (36-48); HEMOGLOBIN 12.7 g/dL (12.0-16.0); LYMPHOCYTES # (AUTO) 0.9 K/uL (1.0-5.5); LYMPHOCYTES % (AUTO) 7.1 % (20.5-51.5); MEAN CORPUSCULAR HEMOGLOBIN 27 pg (27-31); MEAN CORPUSCULAR HGB CONC 34 % (32-36); MEAN CORPUSCULAR VOLUME 79 fL (79.0-98.0); MONOCYTES # (AUTO) 1.6 K/uL (0.0-1.0); MONOCYTES % (AUTO) 13.4 % (1.7-9.3); NEUTROPHILS # (AUTO) 9.5 K/uL (1.8-7.7); PLATELET COUNT (AUTO) 354 K/uL (130-430); RED BLOOD CELL COUNT(AUTO) 4.71 MIL/uL (4.2-6.2); RED CELL DISTRIBUTION WIDTH 15.1 % (9.0-15.0)
[2022-04-07 13:51] LABS: ALBUMIN 3.5 g/dL (3.4-4.8); CALCIUM 9.4 mg/dL (8.4-11.0); CREATININE 0.6 mg/dL (0.55-1.30); TOTAL BILIRUBIN 0.4 mg/dL (0.0-1.0)
[2022-04-07 14:53] LABS: BILIRUBIN,URINE NEGATIVE (NEGATIVE); BLOOD, URINE NEGATIVE (NEGATIVE); CLARITY/URINE CLEAR (CLEAR); COLOR,URINE YELLOW (YELLOW); GLUCOSE,URINE NEGATIVE (NEGATIVE); KETONES,URINE TRACE (NEGATIVE); LEUKOCYTE ESTERASE ,URINE NEGATIVE (NEGATIVE); NITRITE, URINE NEGATIVE (NEGATIVE); PH,URINE 6.5 (5.0-8.0); PROTEIN URINE TRACE (NEGATIVE); UROBILINOGEN,URINE 0.2 (0.2-1.0)
[2022-04-07 15:08] LABS: BACTERIA,URINE FEW /HPF (None Seen); MUCUS,URINE None Seen /LPF (None Seen); RBC,URINE 0-3 /HPF (0-3); WBC,URINE 0-3 /HPF (0-3)
== END 2022-04-07 19:51 | disposition home or self-care (01) ==
LOC: SRD 12:32
PROVIDERS: ATTEND Internal Medicine
DX: J18.9 Pneumonia, unspecified organism (principal); Z79.899 Other long term (current) drug therapy
CPT/HCPCS: 36415; 71046-TC; 80053; 81000; 85025; 87040; 87086

== ENCOUNTER 2022-04-13 14:33 | Emergency (ER) | payer OTHER ==
[~2022-04-13] VITALS: Ht 167.6 cm; Wt 70.3 kg
[2022-04-13 15:00] VITALS: BP_SYST 196
[2022-04-13] MEDS ORDERED: ACETAMINOPHEN 500 MG TABLET ONE (17:16)
--- NOTE | 2022-04-13 18:00 | NUR ---
V.O TYLENOL 1GM GIVEN PO FOR FEVER. PT TOLERATED WELL.
[2022-04-13 18:04] LABS: BASOPHILS # (AUTO) 0.1 K/uL (0.0-0.2); BASOPHILS % (AUTO) 0.6 % (0.0-2.0); EOSINOPHILS % (AUTO) 0.2 % (0.0-4.0); HEMATOCRIT 35.5 % (36-48); HEMOGLOBIN 12.2 g/dL (12.0-16.0); LYMPHOCYTES # (AUTO) 0.7 K/uL (1.0-5.5); LYMPHOCYTES % (AUTO) 7.9 % (20.5-51.5); MEAN CORPUSCULAR HEMOGLOBIN 27 pg (27-31); MEAN CORPUSCULAR HGB CONC 34 % (32-36); MEAN CORPUSCULAR VOLUME 78 fL (79.0-98.0); MONOCYTES # (AUTO) 0.9 K/uL (0.0-1.0); MONOCYTES % (AUTO) 10.6 % (1.7-9.3); NEUTROPHILS # (AUTO) 6.9 K/uL (1.8-7.7); NEUTROPHILS % (AUTO) 80.7 % (40.0-70.0); PLATELET COUNT (AUTO) 447 K/uL (130-430); RED BLOOD CELL COUNT(AUTO) 4.58 MIL/uL (4.2-6.2); RED CELL DISTRIBUTION WIDTH 15.5 % (9.0-15.0); WHITE BLOOD COUNT (AUTO) 8.6 K/uL (4.8-10.8)
[2022-04-13 18:11] LABS: CALCIUM 8.8 mg/dL (8.4-11.0); CREATININE 0.65 mg/dL (0.55-1.30)
[2022-04-13 18:16] LABS: ALBUMIN 3.2 g/dL (3.4-4.8); C-REACTIVE PROTEIN QUANT 7.4 mg/dL (0-0.5); TOTAL BILIRUBIN 0.3 mg/dL (0.0-1.0)
[2022-04-13 18:44] LABS: ERYTHROCYTE SEDIMENTATION RATE 57 MM/HR (0-20)
[2022-04-13] MEDS ORDERED: IBUPROFEN 600 MG TABLET PO ONE (21:15)
[2022-04-13] MEDS ORDERED: LEVO750T64 PO (21:51)
[2022-04-13 22:11] VITALS: BP_SYST 160
--- NOTE | 2022-04-13 22:11 | NUR ---
Patient given written and verbal discharge instructions and verbalizes understanding. ER MD TORRES discussed with patient the results and treatment provided. Patient in stable condition. ID arm band removed. Rx of LEVAQUIN given. Patient educated on pain management and to follow up with PMD. Pain Scale 0/10. Opportunity for questions provided and answered. Medication side effect fact sheet provided.
== END 2022-04-13 22:11 | disposition home or self-care (01) ==
LOC: SED 14:33
DX: J32.9 Chronic sinusitis, unspecified (principal); R50.9 Fever, unspecified; Z88.6 Allergy status to analgesic agent; Z88.8 Allergy status to other drugs, medicaments and biological substances; Z79.899 Other long term (current) drug therapy; Z20.822 Contact with and (suspected) exposure to COVID-19
CPT/HCPCS: 36415; 71045; 80053; 81002; 85025; 85651-TC; 86140; 87040; 99284